=== PATIENT | female | born 1970 | race Caucasian/White ===

== ENCOUNTER 2016-08-02 21:57 | Emergency (ER) | payer MEDICAID ==
[~2016-08-02] VITALS: Ht 162.6 cm; Wt 65.0 kg
[2016-08-03 00:01] VITALS: BP 128/68
== END 2016-08-03 00:20 | disposition home or self-care (01) ==
LOC: ER 21:57
DX: J40 Bronchitis, not specified as acute or chronic (principal); J45.909 Unspecified asthma, uncomplicated; R50.9 Fever, unspecified; Z98.890 Other specified postprocedural states
CPT/HCPCS: 93005; 99283

== ENCOUNTER 2017-06-14 22:57 | Emergency (ER) | payer MEDICAID ==
[~2017-06-14] VITALS: Ht 152.4 cm; Wt 70.0 kg
[2017-06-14 23:29] VITALS: BP 140/83
== END 2017-06-15 08:18 | disposition left against medical advice (07) ==
LOC: ER 06-15 02:12
DX: R06.02 Shortness of breath (principal); Z53.21 Procedure and treatment not carried out due to patient leaving prior to being seen by health care provider